=== PATIENT | female | born 1965 | race Caucasian/White ===

== ENCOUNTER 2018-03-07 14:35 | Emergency (ER) | payer SELFPAY ==
[~2018-03-07] VITALS: Ht 152.4 cm; Wt 45.5 kg
[2018-03-07 14:38] VITALS: Ht 152.4 cm; Wt 45.5 kg
[2018-03-07] MEDS ORDERED: ZANAFLEX4 MG PO (17:07)
[2018-03-07] MEDS ORDERED: VOLTAREN75 MG PO (17:07)
[2018-03-07 17:28] VITALS: BP 125/85
== END 2018-03-07 17:29 | disposition home or self-care (01) ==
LOC: D.ER 14:35
DX: S16.1XXA Strain of muscle, fascia and tendon at neck level, initial encounter (principal); V49.9XXA Car occupant (driver) (passenger) injured in unspecified traffic accident, initial encounter; Y93.89 Activity, other specified; Y92.410 Unspecified street and highway as the place of occurrence of the external cause; S69.92XA Unspecified injury of left wrist, hand and finger(s), initial encounter